=== PATIENT | female | born 1945 | race Caucasian/White ===

== ENCOUNTER 2018-05-02 05:52 | Day surgery (SDC) | payer MEDICARE ==
[~2018-05-02 05:52] MED LIST: Buffered Lidocaine 0.9% SYRIN* 5 ML/SYR SYRINGE INTRADERM ONE
[2018-05-02] MEDS ORDERED: Dexamethasone IV* 4 MG/ML 1 ML (4 MG) IV SLOW PU ONE (06:00)
[2018-05-02] MEDS ORDERED: Famotidine IV* 10 MG/ML 2 ML (20 mg) IV ONE (06:00)
[2018-05-02] MEDS ORDERED: Dexamethasone IV* 4 MG/ML 1 ML (4 MG) ONE (06:05)
[2018-05-02] MEDS ORDERED: Famotidine IV* 10 MG/ML 2 ML (20 mg) ONE (06:05)
[2018-05-02] MEDS ORDERED: Ondansetron INJ* 2 MG/ML VIAL ONE ×2 (06:05→09:16)
[2018-05-02] MEDS ORDERED: ceFAZolin 2 GM PREMIX in ORs 2 GM/50 ML BAG IVPB ONE (06:05)
[2018-05-02] MEDS ORDERED: Morphine VIAL* 10 MG/ML 1 ML VIAL ONE (06:48)
[2018-05-02] MEDS ORDERED: fentaNYL* 50 MCG/ML 2 ML VIAL (100 MCG VIAL) ONE ×2 (07:01→08:46)
[2018-05-02] MEDS ORDERED: Midazolam* 1 MG/ML 2 ML VIAL (2 MG) ONE (07:01)
[2018-05-02] MEDS ORDERED: Rocuronium* 10 MG/ML VIAL ONE (07:03)
[2018-05-02] MEDS ORDERED: Oxymetazoline 0.05% NASAL SPR* 15 ML BTL ONE (07:21)
[2018-05-02] MEDS ORDERED: Metoclopramide IV* 5 MG/ML 2 ML VIAL ONE (08:11)
[2018-05-02] MEDS ORDERED: Lidocaine 2% PF * 5 ML VIAL ONE (08:14)
[2018-05-02] MEDS ORDERED: Propofol* 10 MG/ML 20 ML BTL IV PUSH ONE (08:15)
[2018-05-02] MEDS ORDERED: Ibuprofen TAB* 600 MG PO PRN (08:17)
[2018-05-02] MEDS ORDERED: Acetaminophen TAB* 325 MG PO PRN (08:17)
[2018-05-02] MEDS ORDERED: PROCHLORPERAZINE INJ 5 MG/ML 2 ML VIAL IV PRN (08:17)
[2018-05-02] MEDS ORDERED: Morphine VIAL* 4 MG/ML VIAL (1 ml vial) IV PRN (08:17)
[2018-05-02] MEDS ORDERED: DiMENhydriNATE IV* 50 MG/ML VIAL IV PUSH PRN (08:17)
[2018-05-02] MEDS ORDERED: HYDROcodone/ACETAMIN 5-325 MG* 1 TAB PO PRN (08:17)
[2018-05-02] MEDS ORDERED: Naloxone* 0.4 MG/ML 1 ML VIAL IV PRN (08:17)
[2018-05-02] MEDS ORDERED: fentaNYL* 50 MCG/ML 2 ML VIAL (100 MCG VIAL) IV PRN (08:17)
[2018-05-02] MEDS ORDERED: Bacitracin IV* 50,000 UNITS INJ ONE (09:05)
[2018-05-02] MEDS ORDERED: Bacitracin OINTMENT* 0.5% 0.5 oz TUBE ONE (09:07)
[2018-05-02 10:39] VITALS: BP 161/93
== END 2018-05-02 11:19 | disposition home or self-care (01) ==
LOC: OR 05:52
PROVIDERS: ATTEND Plastic Surgery
DX: J34.89 Other specified disorders of nose and nasal sinuses (principal); J45.909 Unspecified asthma, uncomplicated; E03.9 Hypothyroidism, unspecified; J30.89 Other allergic rhinitis
CPT/HCPCS: 88305; 88311; A9270-GY; J0690; J1100; J2250; J2270; J2405; J2704; J2765; J3010

== ENCOUNTER 2019-03-31 10:29 | Emergency (ER) | payer MEDICARE ==
--- OUTSIDE RECORDS SUMMARY | 2019-03-31 10:34 | XMS REPORT | Continuity of Care Document ---
:1945 External Reference #:[id number] Author Name Aniyah Chao PA (transmitted by agent of provider Juan Santoyo) Address [address] [facility], [facility] [address] [place] [address] Care Team Providers Name Role Phone HCP/LW on file Care Team Information Heat Curer Unavailable [facility] - Care Team Information Heat Curer [phone] Gastroenterology Problems Active Problems Provider Date Osteochondropathy Indy Gresham MD Onset: 11/15/2010 Hypothyroidism Indy Gresham MD Onset: 11/15/2010 Allergic rhinitis Aniyah Chao PA Onset: 05/07/2016 Fibrocystic disease of breast Aniyah Chao PA Onset: 05/07/2016 Hyperlipidemia Aniyah Chao PA Onset: 05/07/2016 Anemia Aniyah Chao PA Onset: 05/07/2016 Idiopathic peripheral neuropathy Aniyah Chao PA Onset: 04/18/2018 Cobalamin deficiency Aniyah Chao PA Onset: 10/17/2018 Social History Type Date Description Comments Sex Unknown Tobacco Use Start: Unknown End: Does Not Smoke Cigarettes Unknown ETOH Use Occasionally consumes alcohol Recreational Drug Use Denies Drug Use Tobacco Use Start: Unknown Patient has never smoked Smoking Status Reviewed: 05/16/18 Patient has never smoked Allergies, Adverse Reactions, Alerts Active Allergies Reaction Severity Comments Date No Known Drug Allergy 03/09/2011 Inactive Allergies NKDA 01/22/2007 Simvastatin Rash And Dairrhea 08/04/2009 Medications Active Medications SIG Qnty Indications Ordering Provider Date Vitamin B-12 5 by mouth every Unknown 10/16/2018 1000mcg day Tablets Burdock Unknown 10/16/2018 Digest Forte Unknown 10/16/2018 Folic Acid Unknown 10/16/2018 Zinc Unknown 10/16/2018 Levothyroxine Sodium 1 tab by mouth 90tabs E03.9 Gamal Lee, 2014 daily M.D. 88mcg Tablets Calcium + D 1 po daily OTC Unknown 02/04/2014 Tablets Ambien one tablet by 30tabs Aniyah Chao PA 01/30/2007 10mg Tablets mouth at at bedtime as needed Immunizations CPT Code Status Date Vaccine Lot # [id number] Given 05/20/2018 Shingrix Zoster (Shingles) Vaccine (HZV) Recomb,Subnit,Adjuvanted 05661 Given 04/02/2018 Influenza Vaccine Split Virus Preservative Free Im Use 86073 Given 03/20/2018 Shingrix Zoster (Shingles) Vaccine (HZV) Recomb,Subnit,Adjuvanted 20293 Given 03/15/2016 Prevnar 13 13840 Given 03/15/2016 Influenza Vaccine Split Virus Preservative Free Im Use 16786 Given 03/19/2013 Flu, Split Virus 3Yrs 85923 Given 02/20/2013 Pneumococcal Immunization [id number] 00745 Given 03/27/2012 Flu, Split Virus 3Yrs 72126 Given 08/16/2010 Adacel or Boostrix, TDaP [id number] 80749 Given 03/30/2010 Flu, Split Virus 3Yrs [id number] 92829 Given 03/29/2009 Flu, Split Virus 3Yrs [id number] 59834 Given 01/22/2007 Zostavax [id number] 25809 Given Unknown Hep B Immunization, Adult 16528 Given Unknown Pneumococcal Immunization 67371 Given Unknown Tetanus Toxoid 65804 Given Unknown Flu, Split Virus 3Yrs Vital Signs Date Vital Result Comment 10/17/2018 2:26pm BP Systolic 122 mmHg BP Diastolic 76 mmHg Height 71 inches 5'11" Weight 189.00 lb BMI (Body Mass Index) 26.4 kg/m2 05/16/2018 10:25am BP Systolic 122 mmHg BP Diastolic 80 mmHg Height 70.5 inches 5'10.50" Weight 184.00 lb BMI (Body Mass Index) 26.0 kg/m2 Results Test Date Facility Test Result H/L Range Note Laboratory test 10/10/2018 [facility] TSH 1.34 mcIU/mL Normal 0.34- 5.60 1 finding [phone] (Thyroid Stim Horm) Vitamin B12 > 1450 pg/mL High 180-914 2 1 Vitamin D not drawn/tested due to ins coverage. SL 2 Normal Range 180 to 914 Indeterminate Range 145 to 180 Deficient Range <145 Procedures Date Code Description Status 12/26/2018 44996435 Mammogram Completed 09/06/2014 24348421 Colonoscopy Completed Medical Devices Description No Information Available Encounters Type Date Location Provider Dx Diagnosis Office Visit 10/17/2018 Main Office Aniyah Chao PA G60.9 Hereditary and 2:15p idiopathic neuropathy, unspecified E03.9 Hypothyroidism, unspecified D51.9 Vitamin B12 deficiency anemia, unspecified Assessments Date Code Description Provider 10/17/2018 G60.9 Hereditary and idiopathic neuropathy, unspecified Aniyah Chao PA 10/17/2018 E03.9 Hypothyroidism, unspecified Aniyah Chao PA 10/17/2018 D51.9 Vitamin B12 deficiency anemia, unspecified Aniyah Chao PA Plan of Treatment Future Appointment(s):05/27/2019 1:50 pm - Aniyah Chao PA at Main Hnwtas0802/2018 - Aniyah Chao PAZ00.00 Encounter for general adult medical examination without abnoComments:72 year old female. Screening up to date.Follow up:physical in one yearJ34.89 Other specified disorders of nose and nasal sinusesComments:Healing well from rhinoplasty. Pt to f/u w surgeon.G60.9 Hereditary and idiopathic neuropathy, unspecifiedComments:Pt will try doubling dose of oral B12. Recheck if sx not improving.E03.9 Hypothyroidism, unspecifiedComments:TSH in normal range. Continue same dose of levothyroxine.Z71.89 Other specified counseling Functional Status Description No Information Available Mental Status Description No Information Available Referrals Refer to Reason for Referral Status Appt Date Daren Bass MD manage hypothyroidism (per patient request) Closed 11/25/[address] [address] [phone] [facility] Neurology eval/treat neuropathy [place] Closed 4th Floor [address] [place] [address] [phone] [facility] eval/treat neuropathy cliff feet Sent [address] [place] [address], [place] [address] [phone]
--- OUTSIDE RECORDS SUMMARY | 2019-03-31 10:34 | XMS REPORT | Continuity of Care Document ---
:1945 External Reference #:[id number] Author Name Christiano Alfaro M.D. Address [address] [place] [address] Care Team Providers Name Role Phone Aniyah Chao Primary Care Physician Unavailable Payers Date Identification Numbers Payment Provider Subscriber Policy Number: [id number] [employer] Pam Spaulding PayID: [id number] [address] [place] [address] Problems Active Problems Provider Date Hypothyroidism Onset: Seasonal allergy Onset: Vitreous degeneration Christiano Alfaro M.D. Onset: 01/20/2016 Combined form of senile cataract Christiano Alfaro M.D. Onset: 01/20/2016 Family History Date Family Member(s) Observation Comments Father No Current Problems Mother Cataract Mother Macular Degeneration Social History Type Date Description Comments Sex Unknown Marital Status Has been 1 time Occupation Ret Adjunct Cu ETOH Use Occasionally consumes alcohol Tobacco Use Start: Unknown Patient has never smoked Recreational Drug Use Denies Drug Use Smoking Status Reviewed: 01/31/19 Patient has never smoked Allergies, Adverse Reactions, Alerts Description No Known Drug Allergies Medications Active Medications SIG Qnty Indications Ordering Provider Date Synthroid Unknown 100mcg Tablets Zolpidem Tartrate Indy Gresham M.D. 10mg Tablets Vitamin B-12 Unknown 1000mcg Tablets Sub Vitamin D every day Unknown 1000Unit Tablets Calcium 600 Unknown 600mg Tablets Zinc Unknown 30mg Capsules History Medications Vagifem 10mcg Indy Gresham M.D. - 01/30 Tablets Gavilyte-C 240gm Unknown - 01/15/2018 Solution Rec Zinc 30mg Unknown - 01/30/2019 Capsules Medications Administered in Office Medication SIG Qnty Indications Ordering Provider Date Crizal Sergey Javier 05/04/2003 Injection Procedures Date Code Description Status 01/28/2018 19127 Determination Of Refractive State Completed 01/28/2018 11537 Est Patient Comprehensive Exam Completed 01/26/2017 04409 Determination Of Refractive State Completed 01/26/2017 84853 Est Patient Comprehensive Exam Completed 01/20/2016 86484 Determination Of Refractive State Completed 01/20/2016 83813 Est Patient Comprehensive Exam Completed 10/29/2014 32587 Determination Of Refractive State Completed 10/29/2014 39319 Est Patient Comprehensive Exam Completed 10/28/2012 64760 Est Patient Comprehensive Exam Completed 10/28/2012 Determination Of Refractive State Completed 10/04/2010 14915 Determination Of Refractive State Completed 10/04/2010 51248 Est Patient Comprehensive Exam Completed 10/04/2010 518 Genteal Gel Completed 03/11/2009 09720 Determination Of Refractive State Completed 03/11/2009 41563 Est Patient Comprehensive Exam Completed 03/05/2007 21830 Determination Of Refractive State Completed 03/05/2007 26430 Est Patient Comprehensive Exam Completed 02/23/2005 20080 Est Patient Comprehensive Exam Completed 05/04/2003 113 Crizal Completed Plan of Treatment 01/31/2019 - Christiano Alfaro M.D.H25.813 Combined forms of age-related cataract , bilateralComments:Smoking can increase the risk of developing or worsening any eye related disease, as well as affect your overall health. If you are a smoker, we strongly recommend that you quit.If you are not a smoker, we strongly recommend that you do not start. You have been diagnosed with cataracts. If you are happy with your vision as it is now, then we will see you at your next scheduled appointment. If you feel like your vision is getting worse before your scheduled appointment, please call [facility] at [phone].Follow up:6 Month Follow Up Diagnostic Refraction You can expect to have your eyes dilated at your next visit. If Dr. Alfaro orders any additional testing , it may require extra time. We recommend that you bring sunglasses, as dilation drops often make you light sensitive until they wear off. We always recommendyou bring someone to drive you home if you are uncomfortable driving with your eyes dilated. If you have any questions before your next visit, feel free to call our office at .h43.813 Vitreous degeneration, bilateralComments:You have a Posterior Vitreous Detachment. If you have any changes in your floaters or flashing lights, please contact this office.
[2019-03-31 10:37] VITALS: BP 122/73
--- NOTE | 2019-03-31 11:44 | UC ---
Hand/Wrist HPI - HPI Summary HPI Summary: 73-year-old female presents with right hand pain, swelling, and bruising after tripping and falling onto a sidewalk onto her outstretched hand 2 days ago. States has full range of motion to her fingers and wrist. Denies any other injuries, numbness or tingling. - History Of Current Complaint Chief Complaint: UCUpperExtremity Stated Complaint: HAND INJURY Time Seen by Provider: 03/31/19 11:09 Hx Obtained From: Patient Pain Intensity: 9 - Allergies/Home Medications Allergies/Adverse Reactions: Allergies Allergy/AdvReac Type Severity Reaction Status Date / Time Environmental and Seasonal Allergy Mild Congestion Uncoded 03/31/19 10:37 PMH/Surg Hx/FS Hx/Imm Hx Previously Healthy: Yes Endocrine History: Hypothyroidism - Surgical History Surgical History: Yes Surgery Procedure, Year, and Place: left ELBOW. surgery 15 years ago. FERTILITY SURGERYS, 30 YEARS AGO. TONSILECTOMY AGE 10. LEFT WRIST FX, 2011,. [facility] - Family History Known Family History: Positive: Non-Contributory - Social History Occupation: Works From/At Home Lives: With Family Alcohol Use: Daily Alcohol Amount: 1 A DAY Substance Use Type: None Smoking Status (MU): Never Smoked Tobacco Have You Smoked in the Last Year: No Review of Systems All Other Systems Reviewed And Are Negative: Yes Constitutional: Positive: Negative Skin: Positive: Bruising Respiratory: Positive: Negative Cardiovascular: Positive: Negative Gastrointestinal: Positive: Negative Genitourinary: Positive: Negative Motor: Negative: Weakness Neurovascular: Negative: Decreased Sensation Musculoskeletal: Positive: Other: - See HPI Neurological: Positive: Negative Is Patient Immunocompromised?: No Physical Exam - Summary Physical Exam Summary: GENERAL APPEARANCE: Well developed, well nourished, alert and cooperative, and appears to be in no acute distress. HEAD: Atraumatic. Normocephalic. NECK: Neck supple, non-tender. Full ROM. CARDIAC: Normal S1 and S2. No S3, S4 or murmurs. Rhythm is regular. There is no peripheral edema, cyanosis or pallor. Extremities are warm and well perfused. Capillary refill is less than 2 seconds. Peripheral pulses intact. LUNGS: Clear to auscultation without rales, rhonchi, wheezing or diminished breath sounds. ABDOMEN: Positive bowel sounds. Soft, nondistended, nontender. No guarding or rebound. No masses or hepatosplenomegally. MUSKULOSKELETAL: Normal muscular development. Normal gait. BACK: Examination of the spine reveals no spinal deformity or tenderness, decreased range of motion or muscular spasm. EXTREMITIES: Mild tenderness over the 3rd and 4th metacarpals of the right hand without gross deformity. Moderate eccymosis of the dorsal and palmar aspect of the hand with moderate edema. Fingers and wrist nontender with full ROM. Circulation and sensation intact. SKIN: Skin normal color, texture and turgor. Triage Information Reviewed: Yes Vital Signs: Initial Vital Signs Temp 98.5 F 03/31/19 10:33 Pulse 68 03/31/19 10:33 Resp 16 03/31/19 10:33 BP 122/73 03/31/19 10:33 Pulse Ox 100 03/31/19 10:33 Vital Signs Reviewed: Yes Procedures - Splinting Right Upper Extremity Location: Left hand Hand-Made Type: orthoglass Splint: ulnar Pre-Proc Neuro Vasc Exam: normal Post-Proc Neuro Vasc Exam: normal Diagnostics - Radiology No standard instances Radiology Interpretation Completed By: Radiologist Summary of Radiographic Findings: Order Information: HAND - RIGHT MINIMUM 3 VIEWS. HISTORY: pain, bruising, swelling s/p fall. COMPARISONS: None relevant available at the time of dictation. VIEWS: 4, Frontal, lateral, and oblique views of the right hand. FINDINGS: BONE DENSITY: Normal. BONES: There is slightly angulated fractures of the heads of the fourth and fifth metacarpals. 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 ALIGNMENT: There is no dislocation. SOFT TISSUES: Unremarkable. OTHER FINDINGS: None. IMPRESSION: FRACTURES OF THE HEADS OF THE FOURTH AND FIFTH METACARPALS. Hand/Wrist Course/Dx - Course Course Of Treatment: 73-year-old female presents with right hand pain, swelling, and bruising after tripping and falling onto a sidewalk onto her outstretched hand 2 days ago. States has full range of motion to her fingers and wrist. Denies any other injuries, numbness or tingling. Afebrile. Vital signs stable. Patient had mild tenderness over the 3rd and 4th metacarpals of the right hand without gross deformity. Moderate eccymosis of the dorsal and palmar aspect of the hand with moderate edema. Fingers and wrist nontender with full ROM. Circulation and sensation intact. Remainder of exam unremarkable. X-ray showed slightly angulated fractures of the heads of the fourth and fifth metacarpals. Attempted to contact Dr. John, orthopedic surgery, to discuss the case however he was unavailable at this time due to being in surgery. Patient was placed in a ulnar gutter splint splint by myself using Ortho-Glass. Circulation sensation were intact pre-and post-application. I was able to schedule the patient for follow-up with Dr. Esposito on 04/02/2019 at 1:15 PM. Recommending conservative treatment for a right hand fracture including over-the -counter analgesics and RICE. Anticipatory guidance, splint care, and warning symptoms were reviewed with the patient. Verbalizes understanding and agrees with plan of care. - Differential Dx/Diagnosis Differential Diagnosis/HQI/PQRI: Contusion, Dislocation, Fracture, Sprain Provider Diagnosis: Closed fracture of 4th metacarpal, Closed fracture of 5th metacarpal Discharge ED - Sign-Out/Discharge Documenting (check all that apply): Patient Departure All imaging exams completed and their final reports reviewed: Yes - Discharge Plan Condition: Stable Disposition: HOME Patient Education Materials: Hand Fracture (ED) Referrals: Aniyah Chao PA [Primary Care Provider] - Mary Esposito MD [Medical Doctor] - 2 Days (You have an appointment scheduled for 04/02 at 1:15 pm) Additional Instructions: The x-ray performed in the clinic today showed evidence of an angulated fracture of the distal 4th and 5th metacarpal bones in your right hand. Rest the hand as much as possible. You will need to leave the splint that was applied in the clinic on at all times. Avoid getting this wet. Apply ice to the affected area for 15-20 minutes at least 4 times a day to help with the pain and swelling. Elevate the hand to help reduce swelling. Take acetaminophen (Tylenol) or ibuprofen (Advil, Motrin) according to directions as needed for pain. Follow up with Dr. Esposito in 2 days days. You have an appointment scheduled for 04/02/2019 at 1:15 PM. Seek immediate medical attention if you have severe pain not managed with pain medication, you are unable to walk or bear any weight, develop numbness or tingling in the hand or fingers, or have any worsening of symptoms. - Billing Disposition and Condition Condition: STABLE Disposition: Home - Attestation Statements Provider Attestation: I was available for consult. This patient was seen by the MARGARITA. The patient was not presented to, seen by, or examined by me. -Victor Manuel
== END 2019-03-31 12:56 | disposition home or self-care (01) ==
LOC: UCEAST 10:29
DX: S62.334A Displaced fracture of neck of fourth metacarpal bone, right hand, initial encounter for closed fracture (principal); S62.336A Displaced fracture of neck of fifth metacarpal bone, right hand, initial encounter for closed fracture; W01.0XXA Fall on same level from slipping, tripping and stumbling without subsequent striking against object, initial encounter; Y92.480 Sidewalk as the place of occurrence of the external cause; E03.9 Hypothyroidism, unspecified
CPT/HCPCS: 99211; G0463

== ENCOUNTER 2021-02-01 08:22 | Observation (INO) ==
[~2021-02-01 08:22] MED LIST changes: -Buffered Lidocaine 0.9% SYRIN* 5 ML/SYR SYRINGE INTRADERM ONE; +Buffered Lidocaine 1% SYRIN 1 ml INTRADERM ONE; +Dexamethasone IV 4 MG/ML VIAL 1 ml VIAL IV SLOW PU ONE; +Famotidine IV 10 MG/ML 2 ml VIAL (20 mg) IV ONE; +Lactated Ringers 1000 ml BAG 1,000 ML IV SCH
[2021-02-01] MEDS ORDERED: Midazolam 2 mg/2 ml VIAL 1 mg/ml 2 ml VIAL (2 mg) ONE (08:36)
[2021-02-01] MEDS ORDERED: Lidocaine 2% PF 5 ML VIAL ONE (08:36)
[2021-02-01] MEDS ORDERED: Propofol 10 MG/ML 20 ML BTL ONE ×2 (08:36→12:17)
[2021-02-01] MEDS ORDERED: Ketamine HCL 50 mg/ml 10 ml VIAL (500 MG) ONE (08:36)
[2021-02-01] MEDS ORDERED: ceFAZolin 2 GM in NS PREMIX 2 GM/100 ML BAG IVPB ONE (08:45)
[2021-02-01] MEDS ORDERED: Famotidine IV 10 MG/ML 2 ml VIAL (20 mg) ONE (08:45)
[2021-02-01] MEDS ORDERED: Dexamethasone IV 4 MG/ML VIAL 1 ml VIAL ONE (08:45)
[2021-02-01] MEDS ORDERED: Naloxone 0.4 mg VIAL 0.4 mg/ml 1 ml VIAL IV PRN (09:43)
[2021-02-01] MEDS ORDERED: Prochlorperazine 5 mg/ml 2 ml VIAL (10 mg) IV PRN (09:43)
[2021-02-01] MEDS ORDERED: Morphine 4 MG/ML VIAL (1 ml) IV PRN (09:43)
[2021-02-01] MEDS ORDERED: Magnesium Hydroxide LIQ 30 ML UDC PO PRN (11:36)
[2021-02-01] MEDS ORDERED: Morphine 2 MG/ML SYRINGE IV PRN (11:36)
[2021-02-01] MEDS ORDERED: Lactulose 30 ml UDC PO PRN (11:36)
[2021-02-01] MEDS ORDERED: Ondansetron 4 mg VIAL 2 MG/ML 2 ml VIAL IV PRN (11:36)
[2021-02-01] MEDS ORDERED: diPHENhydraMINE IV 50 MG/ML 1 ml VIAL (BENADRYL) IV PRN (11:36)
[2021-02-01] MEDS ORDERED: diPHENhydraMINE 25 mg TAB PO PRN (11:36)
[2021-02-01] MEDS ORDERED: Ondansetron ODT 4 mg TAB 4 MG TAB PO PRN (11:36)
[2021-02-01] MEDS: fentaNYL 100 mcg/2 ml 50 MCG/ML VIAL IV PRN ×2 (13:06→13:55)
[2021-02-01] MEDS ORDERED: fentaNYL 100 mcg/2 ml 50 MCG/ML VIAL ONE (13:06)
[2021-02-01] MEDS: Lactated Ringers 1000 ml BAG 1,000 ML IV SCH (15:30)
[2021-02-01] MEDS: ceFAZolin 1 GM ADVAN 1 GM in NS 0.9% 50 ML 50 ML IVPB SCH (17:25)
[2021-02-01] MEDS: Magnesium Hydroxide LIQ 30 ML UDC PO SCH (20:33)
[2021-02-02] MEDS: ceFAZolin 1 GM ADVAN 1 GM in NS 0.9% 50 ML 50 ML IVPB SCH ×2 (01:29→10:44)
[2021-02-02] MEDS: Lactated Ringers 1000 ml BAG 1,000 ML IV SCH (01:29)
[2021-02-02 05:39] LABS: Hematocrit 33 % (35-47); Hemoglobin 11.1 g/dL (12.0-16.0); Mean Platelet Volume 8.2 fL (7.4-10.4); Platelet Count 150 10^3/uL (150-450)
[2021-02-02 06:01] LABS: Calcium 8.3 mg/dL (8.6-10.3); EGFR Non-African American 95.9 (>60); Potassium 4.1 mmol/L (3.5-5.0)
[2021-02-02] MEDS: Magnesium Hydroxide LIQ 30 ML UDC PO SCH (08:59)
[2021-02-02] MEDS ORDERED: Vitamin THERAPEUTIC TAB PO SCH (09:00)
[2021-02-02 11:50] VITALS: BP 121/61
[2021-02-04] MEDS ORDERED: Scopolamine PATCH Remove NOTE PATCH OFF ONE (09:44)
== END 2021-02-02 13:15 | disposition home or self-care (01) ==
LOC: OR 08:22 → SSU 08:22
PROVIDERS: ADMIT Orthopaedic Surgery Adult Reconstructive Orthopaedic Surgery; ATTEND Orthopaedic Surgery Adult Reconstructive Orthopaedic Surgery